=== PATIENT | male | born 1960 | race Caucasian/White ===

== ENCOUNTER 2022-03-02 08:46 | Outpatient (CLI) | payer OTHER, SELFPAY | END 2022-03-02 08:47 | disposition home or self-care (01) | LOC: OP CLINIC 08:48 | PROVIDERS: PCP Family Medicine; Visit Provider Surgery | DX: Z12.11 Encounter for screening for malignant neoplasm of colon (principal); K62.1 Rectal polyp; K57.30 Diverticulosis of large intestine without perforation or abscess without bleeding | CPT/HCPCS: 45385; 88305; 99153; J2250; J3010 ==

== ENCOUNTER 2023-08-02 07:48 | Outpatient (CLI) | payer OTHER, SELFPAY | END 2023-08-02 07:49 | disposition home or self-care (01) | PROVIDERS: PCP Family Medicine; Visit Provider Family Medicine | DX: E78.2 Mixed hyperlipidemia (principal) | CPT/HCPCS: 80053; 80061 ==

== ENCOUNTER 2024-11-28 09:21 | Outpatient (CLI) | payer OTHER, SELFPAY | END 2024-11-28 09:22 | disposition home or self-care (01) | PROVIDERS: PCP Family Medicine; Visit Provider Family Medicine | DX: E78.5 Hyperlipidemia, unspecified (principal); R73.01 Impaired fasting glucose | CPT/HCPCS: 80053; 80061 ==

== ENCOUNTER 2025-01-08 11:26 | Outpatient (CLI) | payer OTHER, SELFPAY | END 2025-01-08 11:27 | disposition home or self-care (01) | LOC: NFLDREF 11:27 | PROVIDERS: PCP Family Medicine; Visit Provider Family Medicine | DX: I10 Essential (primary) hypertension (principal) | CPT/HCPCS: 80048 ==